=== PATIENT | male | born 1960 | race Caucasian/White ===

== ENCOUNTER → 2017-02-24 | Outpatient (CLI) | payer OTHER ==
[2015-12-12 10:05] VITALS: BP 120/60
[~2017-02-24] MED LIST: CIPR500T94 PO; FLUT9.9S NS; GUAI600T79 PO; HYDR-2678 PO; LEVO150T PO; MULT-208 PO; OMEG1CAP38 PO; PRAV40TA2 PO; TELM1TAB PO; TEST60GE TD; TRAM50TA PO
--- NOTE | 2017-02-24 08:29 | RAD ---
Indication right groin pain. Axial images to the pelvis were obtained. No IV or gastrointestinal contrast was administered. Images were obtained during a Valsalva maneuver. A significant bony abnormality is not seen. Occasional diverticula are seen associated with the visualized sigmoid colon. A soft tissue mass is not apparent. In the midline, below the umbilicus, is a small ventral abdominal hernia containing only fat pad appearing uncomplicated. There are small bilateral inguinal hernias which appear uncomplicated and appear to contain only fat. No complicated hernia significant adenopathy acute finding or mass is seen. IMPRESSION: Small ventral abdominal wall hernia containing only fat. Small bilateral uncomplicated inguinal hernias. PQRS Compliance Statement: One or more of the following individualized dose reduction techniques were utilized for this examination: 1. Automated exposure control 2. Adjustment of the mA and/or kV according to patient size 3. Use of iterative reconstruction technique
== END | disposition home or self-care (01) ==
LOC: CT 07:43
PROVIDERS: ATTEND Surgery
DX: K43.9 Ventral hernia without obstruction or gangrene (principal); K40.20 Bilateral inguinal hernia, without obstruction or gangrene, not specified as recurrent
CPT/HCPCS: 72192